=== PATIENT | female | born 1965 | race African-American/Black ===

== ENCOUNTER 2017-12-06 23:52 | Emergency (ER) | payer SELFPAY ==
[~2017-12-06] VITALS: Ht 162.6 cm; Wt 61.2 kg
[2017-12-07] MEDS ORDERED: ACET650S21 PO (01:14)
[2017-12-07] MEDS ORDERED: ONDANSETRON ODT 4 MG PO ONE (01:30)
[2017-12-07] MEDS ORDERED: ONDANSETRON ODT 4 MG ONE (01:35)
[2017-12-07 02:05] LABS: BASOPHILS # (AUTO) 0.06 x10^3/uL (0-0.1); BASOPHILS % (AUTO) 1 % (0-1); EOSINOPHILS # (AUTO) 0.08 x10^3/uL (0-0.4); EOSINOPHILS % (AUTO) 1 % (1-7); LYMPHOCYTES # (AUTO) 2.02 x10^3/uL (1-3.4); LYMPHOCYTES % (AUTO) 23 % (22-44); MD NO; MEAN CORPUSCULAR HEMOGLOBIN 30.8 pg (27.0-34.8); MEAN CORPUSCULAR HGB CONC 33.8 g/dL (32.4-35.8); MEAN CORPUSCULAR VOLUME 91.3 fL (80-100); MEAN PLATELET VOLUME 7.2 fL (7.4-10.4); MONOCYTES # (AUTO) 0.57 x10^3/uL (0.2-0.8); MONOCYTES % (AUTO) 7 % (2-9); NEUTROPHILS # (AUTO) 5.93 x10^3/uL (1.8-6.8); NEUTROPHILS % (AUTO) 68 % (42-75); PLATELET COUNT 491 x10^3/uL (130-400); RED BLOOD COUNT 4.43 x10^6/uL (3.82-5.3); RED CELL DISTRIBUTION WIDTH 14.1 % (9.6-15.2)
[2017-12-07 02:05] LABS: MICROSCOPIC NOT IND
[2017-12-07 02:07] LABS: CULTURE INDICATED? NO
[2017-12-07 02:13] LABS: ALANINE AMINOTRANSFERASE 21 U/L (12-78); ALBUMIN 3.4 g/dL (3.4-5.0); ANION GAP 8 mmol/L (5-15); CALCIUM 10.7 mg/dL (8.5-10.1); CHLORIDE 104 mmol/L (98-107); CREATININE 0.83 mg/dL (0.55-1.02)
[2017-12-07 02:15] LABS: AMPHETAMINE SCREEN, URINE Positive (Negative); BARBITURATE SCREEN, URINE Negative (Negative); BENZODIAZEPINE SCREEN, URINE Negative (Negative); CANNABINOID SCREEN, URINE Negative (Negative); COCAINE SCREEN, URINE Negative (Negative); METHADONE SCREEN, URINE Negative (Negative); OPIATE SCREEN, URINE Negative (Negative)
[2017-12-07 02:18] LABS: ALKALINE PHOSPHATASE 95 U/L (45-117); BILIRUBIN,TOTAL 0.5 mg/dL (0.2-1.0); TOTAL PROTEIN 7.5 g/dL (6.4-8.2); TROPONIN I < 0.015 ng/mL (0.000-0.045)
[2017-12-07] MEDS ORDERED: KETOROLAC 30 MG/1 ML IM ONE (03:30)
[2017-12-07] MEDS ORDERED: KETOROLAC 30 MG/1 ML ONE (03:39)
[2017-12-07 03:49] VITALS: BP 134/93
== END 2017-12-07 03:51 ==
LOC: ED 23:59
DX: K29.00 Acute gastritis without bleeding (principal); F15.129 Other stimulant abuse with intoxication, unspecified
CPT/HCPCS: 36415; 80053; 80307; 81003; 83690; 84484; 85025; 93005; 96372; 99285; J1885; Q0162